=== PATIENT | female | born 1960 | race African-American/Black ===

== ENCOUNTER 2016-06-19 14:10 | Emergency (ER) | payer BC, OTHER ==
[~2016-06-19] VITALS: Ht 160 cm; Wt 124.9 kg
[~2016-06-19 14:10] MED LIST: CELEBREX200 MG PO; HUMIRA40 MG/0.1 SC; JANUMET 50/51 TABLET PO; LEVEMIR FL100 UNITS/ SC; MECLIZINE HCL25 MG PO; THERAGRAN1 TABLET PO; Vicodin,Lortab 5/500 PO; Vitamin D, Drisdol PO; Zestril,Prinivil PO; Zocor PO
[2016-06-19] MEDS ORDERED: PREDNISONE50 MG PO (14:48)
[2016-06-19] MEDS ORDERED: FLEXERIL5 MG PO (14:48)
[2016-06-19] MEDS ORDERED: NORCO 5/3251 TABLET PO (14:48)
[2016-06-19 15:27] VITALS: BP 154/70
== END 2016-06-19 15:28 | disposition home or self-care (01) ==
LOC: EME 14:10
DX: M54.16 Radiculopathy, lumbar region (principal); E11.9 Type 2 diabetes mellitus without complications
CPT/HCPCS: 99281; 99284; J1885; J7512

== ENCOUNTER 2017-01-17 00:19 | Inpatient (IN) | payer BC, OTHER ==
[~2017-01-17] VITALS: Ht 162.6 cm; Wt 131.5 kg
[~2017-01-17 00:19] MED LIST changes: +ERGOCALCIF50000 UNIT PO; +FLEXERIL5 MG PO; +NORCO 5/3251 TABLET PO; +PREDNISONE50 MG PO; -Vitamin D, Drisdol PO
[2017-01-17 01:12] LABS: HEMATOCRIT 38.3 % (36.0-46.0); MCH 26.6 PG (29.0-34.0); MCHC 32.4 G/DL (30.0-36.0); MCV 82.2 FL (83-99); MEAN PLAT.VOLUME 11.2 uM^3 (9.5-12.4); PLATELET COUNT 227 K/uL (156-360); RBC DIS.WIDTH-CV 12.4 % (11.8-14.6); RBC DIS.WIDTH-SD 37.5 % (39-53); RED BLOOD COUNT 4.66 M/uL (3.80-5.20); WHITE BLOOD COUNT 9.1 K/uL (4.1-10.2)
[2017-01-17 01:25] LABS: CHLORIDE 103 mEq/L (99-109); POTASSIUM 4.1 mEq/L (3.7-5.4); SODIUM 136 mEq/L (136-147)
[2017-01-17 01:29] LABS: ANION GAP 14 MEQ/L (2-14)
[2017-01-17 01:31] LABS: GFR ESTIMATE (CALCULATED) > 59 mL/min/
[2017-01-17 01:32] LABS: UREA NITROGEN (BUN) 15 mg/dL (9-23)
[2017-01-17 01:40] LABS: GLUCOSE 431 mg/dL (70-99)
[2017-01-17 02:19] LABS: ADD MIUA? YES; BILIRUBIN NEGATIVE; BLOOD MODERATE; COLOR STRAW ((YELLOW)); GLUCOSE (STRIP) >=500; KETONES 5; LEUKOCYTES NEGATIVE; NITRITE NEGATIVE; PROTEIN (STRIP) NEGATIVE; SPECIFIC GRAVITY 1.023 (1.000-1.030); UROBILINOGEN 0.2 MG/DL (0.2-1.0)
[2017-01-17 03:36] LABS: BACTERIA RARE /HPF; EPITHELIAL CELLS RARE /HPF; MUCUS NONE SEEN /LPF; RED BLOOD CELLS 30-40 /HPF (0-5); UCUL ADDED? NO; WHITE BLOOD CELLS 0-5 /HPF (0-5)
[2017-01-17 05:50] VITALS: BP 149/70
[2017-01-17 06:00] VITALS: BP 149/70
[2017-01-17 06:11] LABS: POINT-OF-CARE METER ID UU14117124
[2017-01-17] MEDS ORDERED: MECLIZINE HCL25 MG PO (11:12)
[2017-01-17] MEDS ORDERED: ASPIR-LOW81 MG PO (11:14)
[2017-01-17] MEDS ORDERED: SIMVASTATIN20 MG PO (11:15)
[2017-01-17] MEDS ORDERED: HUMIRA40 MG/0.8 SC (11:15)
[2017-01-17] MEDS ORDERED: LEVEMIR FL100 UNIT/1 SC (11:15)
[2017-01-17] MEDS ORDERED: NUCYNTA ER100 MG PO (11:15)
[2017-01-17 12:05] VITALS: BP 137/75
[2017-01-17 16:03] VITALS: BP 147/76
[2017-01-17 17:25] LABS: POINT-OF-CARE METER ID UU14117124
[2017-01-17 20:32] VITALS: BP 121/55
[2017-01-18] VITALS (7 sets, daily range): BP systolic 108–156; BP diastolic 56–75
[2017-01-18 06:41] LABS: POINT-OF-CARE METER ID UU14117124
[2017-01-18 06:56] LABS: MCH 27.8 PG (29.0-34.0); MCHC 32.6 G/DL (30.0-36.0); MCV 85.2 FL (83-99); MEAN PLAT.VOLUME 11.3 uM^3 (9.5-12.4); PLATELET COUNT 189 K/uL (156-360); RBC DIS.WIDTH-CV 12.7 % (11.8-14.6); RBC DIS.WIDTH-SD 39.3 % (39-53); RED BLOOD COUNT 3.99 M/uL (3.80-5.20); WHITE BLOOD COUNT 9.3 K/uL (4.1-10.2)
[2017-01-18 07:21] LABS: ANION GAP 8 MEQ/L (2-14); CHLORIDE 107 MEQ/L (99-109); GFR ESTIMATE (CALCULATED) > 59 mL/min/; POTASSIUM 4.1 MEQ/L (3.7-5.4); SAMPLE HEMOLYSIS CHECK 0; SAMPLE ICTERIC CHECK 0; SAMPLE LIPEMIA CHECK 0; SODIUM 140 MEQ/L (136-147); UREA NITROGEN (BUN) 13 mg/dL (9-23)
[2017-01-18 07:24] LABS: GLUCOSE 202 mg/dL (70-99)
[2017-01-18 11:38] LABS: POINT-OF-CARE METER ID UU14117124
[2017-01-18] MEDS ORDERED: TAMSULOSIN HCL0.4 MG PO (12:17)
[2017-01-18] MEDS ORDERED: HYDROCODON-ACE1 EAC7 PO (12:17)
[2017-01-18] MEDS ORDERED: ZOFRAN8 MG PO (12:23)
[2017-01-18 16:59] LABS: POINT-OF-CARE METER ID UU14117124
[2017-01-18 21:50] LABS: POINT-OF-CARE METER ID UU14117124
[2017-01-19] VITALS (8 sets, daily range): BP systolic 138–180; BP diastolic 62–82
[2017-01-19 07:21] LABS: POINT-OF-CARE METER ID UU14188577
[2017-01-19 09:43] LABS: HEMATOCRIT 36.4 % (36.0-46.0); MCH 27.4 PG (29.0-34.0); MCHC 32.4 G/DL (30.0-36.0); MCV 84.5 FL (83-99); MEAN PLAT.VOLUME 11.1 uM^3 (9.5-12.4); PLATELET COUNT 202 K/uL (156-360); RBC DIS.WIDTH-CV 12.6 % (11.8-14.6); RBC DIS.WIDTH-SD 38.2 % (39-53); RED BLOOD COUNT 4.31 M/uL (3.80-5.20)
[2017-01-19 09:54] LABS: ANION GAP 7 MEQ/L (2-14); CHLORIDE 106 MEQ/L (99-109); POTASSIUM 4.4 MEQ/L (3.7-5.4); SAMPLE HEMOLYSIS CHECK 0; SAMPLE ICTERIC CHECK 0; SAMPLE LIPEMIA CHECK 0; SODIUM 139 MEQ/L (136-147)
[2017-01-19 10:00] LABS: GFR ESTIMATE (CALCULATED) > 59 mL/min/; GLUCOSE 144 mg/dL (70-99); UREA NITROGEN (BUN) 12 mg/dL (9-23)
[2017-01-19 11:52] LABS: POINT-OF-CARE METER ID UU14188577
[2017-01-19 16:50] LABS: POINT-OF-CARE METER ID UU14117124
[2017-01-19 22:38] LABS: POINT-OF-CARE METER ID UU14188577
[2017-01-20 03:29] VITALS: BP 162/79
[2017-01-20 06:18] LABS: POINT-OF-CARE METER ID UU14208753
[2017-01-20 08:16] VITALS: BP 166/80
[2017-01-20 11:42] VITALS: BP 172/79
[2017-01-20 12:00] LABS: POINT-OF-CARE METER ID UU14188577
[2017-01-20] MEDS ORDERED: LEVEMIR FL100 UNIT/1 SC (12:50)
[2017-01-20] MEDS ORDERED: DOCUSATE SODIU100 MG PO (12:50)
[2017-01-20] MEDS ORDERED: JANUMET 50/51 TABLET PO (12:55)
== END 2017-01-20 15:55 | disposition home or self-care (01) | DRG 694 ==
LOC: EME 00:19 → EDOF 03:44 → ENRESERV 03:51 → 3EAST 05:26
PROVIDERS: Hospitalist; Internal Medicine; Physician Assistant; Urology
DX: N13.2 Hydronephrosis with renal and ureteral calculous obstruction (principal); E11.65 Type 2 diabetes mellitus with hyperglycemia; E66.01 Morbid (severe) obesity due to excess calories; Z68.42 Body mass index [BMI] 45.0-49.9, adult; I10 Essential (primary) hypertension; G89.29 Other chronic pain; E78.5 Hyperlipidemia, unspecified; E73.9 Lactose intolerance, unspecified; E28.2 Polycystic ovarian syndrome; Z72.0 Tobacco use; Z85.42 Personal history of malignant neoplasm of other parts of uterus; Z98.84 Bariatric surgery status; Z79.4 Long term (current) use of insulin; Z87.442 Personal history of urinary calculi
CPT/HCPCS: 74000; 74176; 80048; 81003; 82365 90; 82948; 85027; 87086; 93005; 99281; 99285; J0696; J1644; J1650; J1815; J1885; J2270; J2405; J2765; J7030; J7050; J7120; S0028